=== PATIENT | male | born 1985 | race Asian ===

== ENCOUNTER 2020-05-07 18:42 | Emergency (ER) | payer SELFPAY ==
[~2020-05-07] VITALS: Ht 175.3 cm; Wt 83.9 kg
[2020-05-07 18:49] VITALS: BP 142/92
--- NOTE | 2020-05-07 18:51 | NUR ---
PT AMB TO [facility]
--- NOTE | 2020-05-07 19:30 | NUR ---
PT BIB SELF FOR C/C OF 6/10 LEFT THUMB PAIN X3 DAYS AFTER POSSIBLE BUG BITE. THUMB IS INFLAMMED AND RED. DENIES TAKING ANY OTC MEDS. DENIES NUMBESS/TINGLING. NKA NO MED HX NO RX
[2020-05-07] MEDS ORDERED: BACITRACIN OINT 500 UNITS/GM PKT TP ONE ×2 (19:50)
[2020-05-07 20:08] VITALS: BP 142/92
--- NOTE | 2020-05-07 20:08 | NUR ---
Patient discharged with v/s stable. Written and verbal after care instructions given and explained. Patient alert, oriented and verbalized understanding of instructions. Ambulatory with steady gait. All questions addressed prior to discharge. ID band removed. Patient advised to follow up with PMD. Rx of NEOSPORIN given. Patient educated on indication of medication including possible reaction and side effects. Opportunity to ask questions provided and answered.
== END 2020-05-07 20:08 | disposition home or self-care (01) ==
LOC: MED 18:42
DX: L03.012 Cellulitis of left finger (principal); F17.200 Nicotine dependence, unspecified, uncomplicated; W57.XXXA Bitten or stung by nonvenomous insect and other nonvenomous arthropods, initial encounter; Y93.89 Activity, other specified; Y92.89 Other specified places as the place of occurrence of the external cause; Y99.8 Other external cause status
CPT/HCPCS: 99282